=== PATIENT | male | born 1960 | race Caucasian/White ===

== ENCOUNTER 2020-06-24 08:00 | Outpatient (RCR) | payer BC, SELFPAY ==
[2018-11-17 10:05] VITALS: BMI 48.2
[2020-06-24] MEDS: COVID-19 VACC, MRNA(PFIZER)/PF 30 MCG/0.3 ML SYRINGE IM (15:34)
[2020-07-15] MEDS: COVID-19 VACC, MRNA(PFIZER)/PF 30 MCG/0.3 ML SYRINGE IM (15:11)
== END 2020-06-24 23:59 ==
LOC: IMMUN 08:00
PROVIDERS: PCP Family Medicine; Visit Provider Family Medicine
DX: Z23 Encounter for immunization (principal)
CPT/HCPCS: 0001A; 0002A; 91300

== ENCOUNTER → 2022-07-30 | Outpatient (CLI) | payer OTHER, SELFPAY ==
[2022-07-30 12:30] LABS: Hematocrit 41.2 % (40-54); Hemoglobin 13.9 g/dL (13.0-16.5); Mean Corp Hgb Conc 33.7 g/dL (32-36); Mean Corpuscular Hgb 30.8 pg (27.0-32.0); Mean Corpuscular Volume 91.4 fL (80-94); Mean Platelet Vol. 10.6 fl (6.2-12.0); Platelet Count 207 K/mm3 (150-450); RBC Distribution Width SD 40.2 fl (35.1-43.9); Red Blood Count 4.51 M/mm3 (4.6-6.2); White Blood Count 5.9 K/mm3 (4.4-11.0)
[2022-07-30 13:10] LABS: Anion Gap 6 (5-15); BUN 15 mg/dL (7-18); BUN/Creat Ratio 17.1 RATIO (10-20); Calcium,Total 9.7 mg/dL (8.5-10.1); Chloride 102 mmol/L (98-107); Creatinine, Serum 0.88 mg/dL (0.70-1.30); EST Glomerular Filtration Rate 94 mL/min (>60); Est Glom Filt Rate - Afr Amer 113 mL/min (>60); Glucose 243 mg/dL (74-106); Potassium 4.2 mmol/L (3.5-5.1); Sodium Level 133 mmol/L (136-145)
== END | disposition home or self-care (01) ==
PROVIDERS: PCP Family Medicine; Referring Provider Internal Medicine Cardiovascular Disease; Visit Provider Internal Medicine Cardiovascular Disease
DX: R53.83 Other fatigue (principal); R07.9 Chest pain, unspecified; I10 Essential (primary) hypertension; E78.00 Pure hypercholesterolemia, unspecified
CPT/HCPCS: 36415; 80048; 85027

== ENCOUNTER → 2022-09-03 | Outpatient (CLI) | payer OTHER, SELFPAY ==
--- NOTE | 2022-09-03 07:58 | ECHOCS_ITS ---
Reason For Study: Chest Pain Procedure This was a 2D Doppler, Color Flow transthoracic echocardiogram. The study was technically difficult. Contrast injection was performed. Exam performed in department. Left Ventricle Normal LV size. Left ventricular systolic function is normal. The estimated ejection fraction is 65 %. Stage 1 diastolic dysfunction. No regional wall motion abnormalities noted. Right Ventricle Normal RV size. Normal systolic function. Atria Normal left atrium. Normal right atrium. Mitral Valve Normal mitral valve. Tricuspid Valve Normal tricuspid valve. Aortic Valve Trisinus/trileaflet aortic valve. Mild focal aortic valve calcification. Pulmonic Valve Normal pulmonic valve. Great Vessels Normal aortic root. The pulmonary artery is normal size. Normal inferior vena cava. Pericardium/Pleural No pericardial effusion. Medication 22 gauge I.V. with prn adaptor inserted into right arm. Diluted definity 3.5ml given slow IV push to enhance endocardial definition. Performed a rapid injection of agitated mix of 9 cc saline and 1cc air to assess for atrial septal defect. MMode/2D Measurements & Calculations LVIDd: 5.7 cm IVSd: 1.1 cm Ao root diam: 4.4 cm LVIDs: 3.7 cm LVPWd: 1.1 cm LA dimension: 4.4 cm FS: 35.5 % LAV(MOD-bp): 49.5 ml LVAd ap4: 46.6 cm2 SV(MOD-sp4): 116.3 ml LAV(MOD-bp) Indexed: 17.9 ml/m2 LVLd ap4: 9.7 cm LAV(MOD-sp2): 49.3 ml EDV(MOD-sp4): 180.3 ml LAV(MOD-sp4): 47.6 ml EDV(sp4-el): 189.1 ml LVAs ap4: 24.9 cm2 LVLs ap4: 8.4 cm ESV(MOD-sp4): 64.0 ml ESV(sp4-el): 63.1 ml EF(MOD-sp4): 64.5 % EF(sp4-el): 66.6 % SV(sp4-el): 126.0 ml LA A4 area: 17.8 cm2 RA A4 area: 16.9 cm2 TAPSE: 2.7 cm Time Measurements MV dec time: 0.24 sec Doppler Measurements & Calculations MV E max jean: 71.0 cm/sec Lat Peak E' Jean: 9.2 cm/sec Med Peak E' Jean: 6.6 cm/sec MV A max jean: 81.4 cm/sec E/E' lat: 7.7 E/E' med: 10.8 MV E/A: 0.87 MV V2 max: 97.6 cm/sec MV P1/2t max jean: 82.3 cm/sec Ao V2 max: 155.4 cm/sec MV max P.8 mmHg MV P1/2t: 83.6 msec Ao max P.7 mmHg MV V2 mean: 56.1 cm/sec Ao V2 mean: 107.7 cm/sec MV mean P.5 mmHg MV dec slope: 288.2 cm/sec2 Ao mean P.3 mmHg MV V2 VTI: 24.2 cm MVA(P1/2t): 2.6 cm2 Ao V2 VTI: 32.8 cm AV (velocity ratio): 0.68 LV V1 max: 105.3 cm/sec PA V2 max: 83.4 cm/sec LV V1 max P.4 mmHg PA V2 mean: 61.8 cm/sec LV V1 mean P.4 mmHg LV V1 mean: 71.8 cm/sec LV V1 VTI: 22.4 cm ECHO/Echo Complete W/ Contrast Interpretation Summary Normal LV size. Left ventricular systolic function is normal. The estimated ejection fraction is 65 %. Stage 1 diastolic dysfunction. Contrast injection was performed. Ordering Physician: Yg Haddad Referring Physician: Yg Haddad Performed By: Walt Cortez RCS
== END | disposition home or self-care (01) ==
LOC: CVS 07:57
PROVIDERS: PCP Family Medicine; Referring Provider Internal Medicine Cardiovascular Disease; Visit Provider Internal Medicine Cardiovascular Disease
DX: R53.83 Other fatigue (principal); R07.9 Chest pain, unspecified; I10 Essential (primary) hypertension; E78.00 Pure hypercholesterolemia, unspecified
CPT/HCPCS: 93306; Q9957; A4216; C8929

== ENCOUNTER 2023-11-29 12:01 | Day surgery (SDC) | payer OTHER, SELFPAY ==
[2023-11-29] VITALS (10 sets, daily range): BP systolic 125–148; BP diastolic 78–93; PULSE 73–87; RESP 16–18; TEMP 36.3–36.7; O2SAT 88–94; BMI 45.3
[2023-11-29] MEDS: Lactated Ringers 1,000 ML 15 ML IV (12:50)
--- NOTE | 2023-11-29 13:20 | PRE.ANES_ITS ---
ASA Classification* ASA Classification ASA Classification: 3 Assessment & Plan Anesthesia* Anesthesia Assessment Anesthesia Assessment: Discussed sedation and/or anesthesia options, risks, benefits, and alternatives with patient/parents/legal guardian/POA. Questions invited. The patient/parents/legal guardian/POA seems to understand and agrees to proceed with anesthesia plan. Reviewed the physical assessment, medical history, allergy history and patient home medications list prior to surgery/procedure/anesthetic and documented any changes. Performed airway and anesthesia risk assessments. Anesthesia Type Anesthesia Type: General (see written pre anesthesia record for full assessment) Anesthesia Focused Assessment* Temperature: 98.0 F Pulse Rate: 87 Blood Pressure: 148/93 Respiratory Rate: 18 Pulse Ox: 94 Airway Assessment Mouth opens: >3 cm Mallampati Score: II Focused Labs Anesthesia Preop lab: CBC WBC 5.9 K/mm3 (4.4-11.0) 07/30/22 11:21 RBC 4.51 M/mm3 (4.6-6.2) L 07/30/22 11:21 Hgb 13.9 g/dL (13.0-16.5) 07/30/22 11:21 Hct 41.2 % (40-54) 07/30/22 11:21 Plt Count 207 K/mm3 (150-450) 07/30/22 11:21 CHEMISTRY Potassium 4.2 mmol/L (3.5-5.1) 07/30/22 11:21 Sodium 133 mmol/L (136-145) L 07/30/22 11:21 BUN 15 mg/dL (7-18) 07/30/22 11:21 Creatinine 0.88 mg/dL (0.70-1.30) 07/30/22 11:21 Glucose 243 mg/dL (74-106) H 07/30/22 11:21 POC Glucose 162 mg/dL (70-110) H 03/19/12 12:43 COAG Pre-Assessment Diagnosis/Proposed Procedure Planned Operative Procedure(s): Cysto, Ureteroscopy, Retro, Laser, Stent Anesthesia History 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 When Was Last Pacemaker Check QUESTION #4 FULL TEXT: You/Your Family Experience fever (hyperthermia) with Anesthesia Last Oral Intake Last Oral intake: Last Oral Intake NPO since 08:00 11/29/23 12:31 Meds taken in AM with sips of water? Meds patient instructed to take am of surgery PONV PONV - licensed funeral director and embalmer: PONV - licensed funeral director and embalmer Female No 11/27/23 08:20 HX of Motion Sickness No 11/27/23 08:20 HX of N/V After Surgery No 11/27/23 08:20 Non-Smoker Yes 11/27/23 08:20 Duration of Surgery greater No 11/27/23 08:20 than 60 minutes Number of Risk Factors 1 11/27/23 08:20 PONV Score Low Risk 11/27/23 08:20 Height & Weight Height & Weight: Anesthesia: Height & Weight Height 6 ft 1 in 11/29/23 12:31 Weight: 156 kg 11/29/23 12:31 Body Mass Index (BMI) 45.3 11/29/23 12:31 Respiratory Assessment Respiratory Assessment - licensed funeral director and embalmer: Respiratory Tract Infection Hx - licensed funeral director and embalmer Hx Respiratory Tract Infection No 11/27/23 08:20 STOP Sleep Apnea STOP Sleep Apnea - licensed funeral director and embalmer: STOP Sleep Apnea - licensed funeral director and embalmer Hx Hypertension Yes: controlled with med 11/27/23 08:20 Hx Sleep Apnea No 11/27/23 08:20 CPAP BIPAP Do you snore loudly (louder Yes 11/27/23 08:20 than talking or can be heard Do you often feel tired/ No 11/27/23 08:20 fatigued/ sleepy during daytime? Has anyone observed you stop Yes 11/27/23 08:20 breathing during sleep? STOP Results Positive 11/27/23 08:20 QUESTION #5 FULL TEXT : Do you snore loudly (louder than talking or can be heard through closed doors)? Tobacco Use History Tobacco Use History - licensed funeral director and embalmer: Tobacco Use History - licensed funeral director and embalmer Tobacco Use Smoking Status Never smoker 11/27/23 08:20 Hx Tobacco Use No 11/27/23 08:20 Years Smoking Packs Smoked per Day Smoking Cessation Date was within the last 15 years Hx Smoking Cessation Date Hx Smoking Cessation Counseling Hematologic Medial History Hematologic Hx - licensed funeral director and embalmer: Hematologic Medical Hx - manager floral Hx of Blood Transfusion No 11/27/23 08:20 Hx of Transfusion in last 3 No 11/27/23 08:20 Months Date of Last Transfusion (if within last 3 months) Ever experience any problems No 11/27/23 08:20 with transfusion(s)? Specify any problems Hx of Preganancy in last 3 N/A 11/27/23 08:20 Months Nurse Filling Out Transfusion NBUCHER 11/27/23 08:20 & Questions: Date: 11/27/23 11/27/23 08:20 Time: 08:11/27/23 08:20 Patient unable to answer at this time (ie. confused, unrespo /Reproduction History /Reproductive History - licensed funeral director and embalmer: /Reproductive Hx- licensed funeral director and embalmer Hx Now No 11/27/23 08:20 Gestational Age (in weeks): EDC: Hx Hx Para Hx Section SAB No 11/27/23 08:20 Active Medications Active Medications: Current Medications Generic Name Dose Route Start Last Admin Trade Name Freq PRN Reason Stop Dose Admin Lactated Ringer's 1,000 mls @ 15 mls/hr 11/29/23 12:15 11/29/23 12:50 IV 15 mls/hr .Q48H LYDIA Administration PFSH Medical History Wears glasses Insulin dependent diabetes mellitus Prostate disease High cholesterol History of sigmoidoscopy Cancer Non-smoker History of edema History of echocardiogram Cardiology follow-up encounter Fatigue Pure hypercholesterolemia Malignant neoplasm of prostate Essential hypertension Contact dermatitis due to poison angella Abnormal liver enzymes Anemia Diabetes mellitus type 2 in obese GERD (gastroesophageal reflux disease) correction use of drug Abnormal electrocardiogram Home Medications ?Medication ?Instructions ?Recorded ?Last Taken ?Type aspirin 81 mg tablet,delayed 81 mg PO QDAY 08/01/17 11/14/23 History release (Adult Low Dose Aspirin) candesartan 32 mg tablet 32 mg PO QDAY 08/01/17 11/29/23 History lovastatin 20 mg tablet 20 mg PO QPM 08/01/17 Unknown History metoprolol succinate 25 mg 25 mg PO DAILY 07/18/22 11/29/23 History tablet,extended release 24 hr omeprazole 20 mg tablet,delayed 20 mg PO DAILY 07/18/22 11/29/23 History release tadalafil 20 mg tablet (Cialis) 20 mg PO DAILY PRN sexual activity 07/18/22 Unknown History glimepiride 2 mg tablet 2 mg PO BID 07/30/22 Unknown History insulin glargine 100 unit/mL (3 60 unit subcut QPM 07/30/22 11/28/23 History mL) subcutaneous pen (Lantus Solostar U-100 Insulin) metformin 500 mg tablet 1,000 mg PO BID 07/30/22 Unknown History semaglutide 1 mg/dose (2 mg/1.5 1 mg subcut TH 07/30/22 11/21/23 History mL) subcutaneous pen injector (Ozempic) Allergy/AdvReac Type Severity Reaction Status Date / Time No Known Allergies Allergy Verified 11/29/23 12:30 Family History Mother Hypertension Arthritis Father CAD (coronary artery disease) Other Heart disease Surgical History History of colonoscopy History of esophagogastroduodenoscopy (EGD) hx arthrocentesis of left knee H/O arthroscopy of left knee (~03/19/12) Social History Smoking Status: Never smoker alcohol intake: current alcohol intake frequency: a few times a week Alcohol type: wine substance use type: does not use caffeine: Yes Type: coffee Number of servings: 3 what type of physical activity do you participate in: weight training frequency: 1-2 times per week duration: 30-45 minutes/day seatbelt use: always do you feel safe at home: Yes Review of Systems (Anesthesia) ROS Narrative System reviewed and no additional complaints, except as documented.
--- NOTE | 2023-11-29 14:00 | HP.PCM_ITS ---
HPI - General General Date of Admission: 11/29/23 Chief Complaint: Right ureteral calculi HPI Narrative LAURENCE NARAYAN, is a 63 M who presents for second stage treatment of a distal right ureteral stone he underwent shockwave lithotripsy but the stone did not break so at the put the stent back in at the last procedure this was done in outside hospital. Donaldo bring him back would let the stent into let the ureter dilate and working to proceed with ureteroscopy laser lithotripsy of a stone fragment with the thulium laser and stent placement. [facility] Medical History Wears glasses Insulin dependent diabetes mellitus Prostate disease High cholesterol History of sigmoidoscopy Cancer Non-smoker History of edema History of echocardiogram Cardiology follow-up encounter Fatigue Pure hypercholesterolemia Malignant neoplasm of prostate Essential hypertension Contact dermatitis due to poison angella Abnormal liver enzymes Anemia Diabetes mellitus type 2 in obese GERD (gastroesophageal reflux disease) correction use of drug Abnormal electrocardiogram Home Medications ?Medication ?Instructions ?Recorded ?Last Taken ?Type aspirin 81 mg tablet,delayed 81 mg PO QDAY 08/01/17 11/14/23 History release (Adult Low Dose Aspirin) candesartan 32 mg tablet 32 mg PO QDAY 08/01/17 11/29/23 History lovastatin 20 mg tablet 20 mg PO QPM 08/01/17 Unknown History metoprolol succinate 25 mg 25 mg PO DAILY 07/18/22 11/29/23 History tablet,extended release 24 hr omeprazole 20 mg tablet,delayed 20 mg PO DAILY 07/18/22 11/29/23 History release tadalafil 20 mg tablet (Cialis) 20 mg PO DAILY PRN sexual activity 07/18/22 Unknown History glimepiride 2 mg tablet 2 mg PO BID 07/30/22 Unknown History insulin glargine 100 unit/mL (3 60 unit subcut QPM 07/30/22 11/28/23 History mL) subcutaneous pen (Lantus Solostar U-100 Insulin) metformin 500 mg tablet 1,000 mg PO BID 07/30/22 Unknown History semaglutide 1 mg/dose (2 mg/1.5 1 mg subcut TH 07/30/22 11/21/23 History mL) subcutaneous pen injector (Ozempic) Allergy/AdvReac Type Severity Reaction Status Date / Time No Known Allergies Allergy Verified 11/29/23 12:30 Family History Mother Hypertension Arthritis Father CAD (coronary artery disease) Other Heart disease Surgical History History of colonoscopy History of esophagogastroduodenoscopy (EGD) hx arthrocentesis of left knee H/O arthroscopy of left knee (~03/19/12) Social History Smoking Status: Never smoker alcohol intake: current alcohol intake frequency: a few times a week Alcohol type: wine substance use type: does not use caffeine: Yes Type: coffee Number of servings: 3 what type of physical activity do you participate in: weight training frequency: 1-2 times per week duration: 30-45 minutes/day seatbelt use: always do you feel safe at home: Yes Vital Signs Vital Signs Vital Signs: 11/29/23 12:31 11/29/23 12:31 11/29/23 13:20 Temperature 98.0 F 98.0 F Temperature Source Temporal Pulse Rate 87 87 Respiratory Rate 18 18 Respiratory Pattern Normal Blood Pressure 148/93 H 148/93 H Blood Pressure Mean 111 Blood Pressure Source Monitor Blood Pressure Position Sitting Blood Pressure Location Left Arm Pulse Ox 94 94 Oxygen Delivery Method Room Air Weight Weight: 156 kg Body Mass Index (BMI) 45.3
--- NOTE | 2023-11-29 14:01 | DCINST_ITS ---
Discharge Instructions Diet Discharge Diet: No restrictions Activity Discharge Activity: Return to Normal Activity and May Not Drive (while taking narcotic pain medications.) Dressing / Incision Call your doctor if you observe: Fever of 101 or Higher Follow Up Care Please Follow Up With: Josiah Mejia MD When: Call [phone] for an appointment to get stent out. Test Results: Test results from this visit will be discussed in further detail at your follow- up appointment, if applicable. Discharge Plan Admission Attending Provider: Josiah Mejia Primary Care Provider: David Mckee Instructions Print Language: Moroccan Discharge Orders/Prescriptions Prescriptions: No Action aspirin [Adult Low Dose Aspirin] 81 mg tablet,delayed release (DR/EC) 81 mg PO QDAY candesartan 32 mg tablet 32 mg PO QDAY lovastatin 20 mg tablet 20 mg PO QPM glimepiride 2 mg tablet 2 mg PO BID Ozempic 1 mg/dose (2 mg/1.5 mL) pen injector 1 mg subcut TH insulin glargine [Lantus Solostar U-100 Insulin] 100 unit/mL (3 mL) insulin pen 60 unit subcut QPM omeprazole 20 mg tablet,delayed release (DR/EC) 20 mg PO DAILY metoprolol succinate 25 mg tablet extended release 24 hr 25 mg PO DAILY tadalafil [Cialis] 20 mg tablet 20 mg PO DAILY PRN (Reason: sexual activity) Rx Instructions: administer approximately 30min before sexual activity; do not use more than 1 dose per 24hrs metformin 500 mg tablet 1,000 mg PO BID Referrals / Follow Up: David Mckee, [Primary Care Provider] - Disposition Disposition (needs filled in before D/C Order can be placed): Home, Self Care
[2023-11-29] MEDS: Cefazolin 3 GM in 0.9% Normal Saline (100mL Bag) 100 ML IV (14:20)
--- NOTE | 2023-11-29 15:09 | PCM.OPRPT ---
Report of Operation Date of Procedure: 11/29/23 Pre-Operative Diagnosis: Right ureteral calculi with obstruction Post-Operative Diagnosis: The same Surgery/Procedure Performed:: Cystoscopy, right retrograde pyelogram, right ureteroscopy laser lithotripsy of stone and right stent placement Description of Surgical Findings:: This is a morbidly obese gentleman that presented to an outside hospital obstructing stone in the distal right ureter he underwent cystoscopy and stent placement the initial stent placement looks quite difficult very tortuous ureter very difficult to get the stent up was not an easy stent placement. We then proceeded with shockwave lithotripsy but this failed to break the stones another stent was placed in, now presents for ureteroscopy and laser lithotripsy of the stone. Patient was taken back to the operating room after smooth induction of anesthesia he was placed upon on the table penis and testicles were prepped and draped in usual sterile fashion went into the bladder with a 21 English rigid cystourethroscope grabbed the existing stent pulled out to the meatus I was then able to get a wire through the stent all the way up into the kidney and then used a dual-lumen catheter and put a second Super Stiff wire so I had 2 wires up into the kidney I then went over the flexible wire with the flexible ureteroscope once I got into the kidney then I backed out the flexible wire and worked my way down the ureter left the semirigid Super Stiff wire in place to straighten out the ureter this was a super angulated ureter. I then was able to work my way down to the distal ureter and finally encountered a large stone that was, pushed off into the sidewall of the ureter wall I then used a laser fiber it was a 365 ?m laser fiber and started lasering the stone once I got done lasering the stone broke up into little tiny pieces that should all pass on her own but there was quite about quite a bit of inflammation and tear in the ureter for the stone was stuck and a lot of edema and tear in the mucosa where the stone had been stuck. So because of this I decided to leave and that the stent into make sure this heals up okay and hopefully avoid a scar tissue or ureteral stricture which would be at risk for this gentleman. So I backloaded a Pollick catheter did a retrograde pyelogram the prevails in the collecting system and then left the Glidewire in place another of the wire a Glidewire and placed a 6 English by 26 cm stent the stent coiled in the bladder and then coiled up in the kidney I then drained the bladder we left the stent will leave the stent in for elective 3 to 4 weeks to make sure it heals up and then the office to get the stent out in about a month from now to make sure this all heals up and hopefully avoid a stricture. Again it was extremely angulated ureter very difficult case and this is the 2nd attempt to get the stone out but was successful and able to get stone out. Surgeon: Josiah Mejia Type of Anesthesia: General Drains: stent Estimated Blood Loss (mL): 0 Admit VTE Documentation VTE Present on Admission: No VTE Mechan Device Prophylaxis: SCD's VTE Pharm Prophylaxis ordered?: No
[2023-11-29 15:18] LABS: Bedside Glucose 211 mg/dL (74-106)
[2023-11-29] MEDS: Ketorolac 15 MG/ML Vial IV (15:45)
--- NOTE | 2023-11-29 15:58 | PCM.POST.ANE ---
Anesthesia: Postop Eval I Current Vital Signs Temperature: 97.5 F Pulse Rate: 73 Blood Pressure: 135/84 Respiratory Rate: 16 Pulse Ox: 92 Oxygen Delivery Method: Nasal Cannula Oxygen Flow Rate (L/min): 3 Assessment Airway patent: Yes Spontaneous unlabored respirations: Yes Mental status: Awake and Calm nausea: No Vomiting: No Anesthesia Complication: No Fluid Hydration Crystalloid volume administer (ml): 800 Total IV fluid infused: 800 Progress Note Anesthesia document: Postop Eval 1 completed: Yes
[2023-11-29] MEDS: Acetaminophen 325 MG Tablet 650 MG PO (16:25)
[2023-11-29] MEDS: oxyCODONE 5 MG Tablet PO (16:26)
--- NOTE | 2023-11-29 17:05 | POSTOPAN2_ITS ---
Anesthesia Postop Eval I Sum Postop Eval Completion status Anesthesia document: Postop Eval 1 completed: Yes Anesthesia Postop Eval I Summary Anesthesia Postop Eval I Summary: Anesthesia Postop Eval I: Assessment Summary Airway patent Yes 11/29/23 15:59 PRACTICE SPECIALIST.MDOT Spontaneous unlabored Yes 11/29/23 15:59 PRACTICE SPECIALIST.MDOT respirations Mental status Awake,Calm 11/29/23 15:59 PRACTICE SPECIALIST.MDOT nausea No 11/29/23 15:59 PRACTICE SPECIALIST.MDOT Vomiting No 11/29/23 15:59 PRACTICE SPECIALIST.MDOT Anesthesia Postop Eval I: Fluid Summary Crystalloid volume administer 800 11/29/23 15:59 PRACTICE SPECIALIST.MDOT (ml) Colloids volume administered ( ml) Blood Product volume administered (ml) Total IV fluid infused 800 11/29/23 15:59 PRACTICE SPECIALIST.MDOT Anesthesia Postop Eval I: Summary Notes Anesthesia Complication No 11/29/23 15:59 PRACTICE SPECIALIST.MDOT Anesthesia Complication Comment: Post-operative progress note Anesthesia: Postop Eval II Evaluation Mental status: Awake Pain Level: 0 nausea: No Vomiting: No
--- NOTE | 2023-11-29 17:05 | PCM.POSTANE2 ---
Anesthesia Postop Eval I Sum Postop Eval Completion status Anesthesia document: Postop Eval 1 completed: Yes Anesthesia Postop Eval I Summary Anesthesia Postop Eval I Summary: Anesthesia Postop Eval I: Assessment Summary Airway patent Yes 11/29/23 15:59 GRAPHICS MANAGER.MDOT Spontaneous unlabored Yes 11/29/23 15:59 GRAPHICS MANAGER.MDOT respirations Mental status Awake,Calm 11/29/23 15:59 GRAPHICS MANAGER.MDOT nausea No 11/29/23 15:59 GRAPHICS MANAGER.MDOT Vomiting No 11/29/23 15:59 GRAPHICS MANAGER.MDOT Anesthesia Postop Eval I: Fluid Summary Crystalloid volume administer 800 11/29/23 15:59 GRAPHICS MANAGER.MDOT (ml) Colloids volume administered ( ml) Blood Product volume administered (ml) Total IV fluid infused 800 11/29/23 15:59 GRAPHICS MANAGER.MDOT Anesthesia Postop Eval I: Summary Notes Anesthesia Complication No 11/29/23 15:59 GRAPHICS MANAGER.MDOT Anesthesia Complication Comment: Post-operative progress note Anesthesia: Postop Eval II Evaluation Mental status: Awake Pain Level: 0 nausea: No Vomiting: No
== END 2023-11-29 16:43 | disposition home or self-care (01) ==
LOC: SDC 12:03 → AC 12:06
PROVIDERS: PCP Family Medicine; Referring Provider Urology; Visit Provider Urology
PROC: 0TJ98ZZ Inspection of Ureter, Via Natural or Artificial Opening Endoscopic (ICD-10-PCS; CPT 52352; principal; 2023-11-29 13:50)
DX: N20.1 Calculus of ureter (principal); Z68.42 Body mass index [BMI] 45.0-49.9, adult; E11.69 Type 2 diabetes mellitus with other specified complication; Z79.4 Long term (current) use of insulin; E66.9 Obesity, unspecified; I10 Essential (primary) hypertension; E78.00 Pure hypercholesterolemia, unspecified; Z79.82 Long term (current) use of aspirin; Z79.84 Long term (current) use of oral hypoglycemic drugs; Z79.85 Long-term (current) use of injectable non-insulin antidiabetic drugs; Z79.899 Other long term (current) drug therapy
CPT/HCPCS: 52356; 00918; 76000; 82962; J7120; C1758; C1769; C2617; J2405